=== PATIENT | male | born 1935 | race Two or more races ===

== ENCOUNTER → 2016-11-14 | Outpatient (CLI) | payer OTHER ==
--- NOTE | 2016-11-14 11:23 | RAD ---
PET CLINICAL INDICATION: Liver lesion FDG PET-CT of the Body TECHNIQUE: The patient received an IV injection of 11.77 mCi 18F-FDG in the left breast. After an initial uptake phase of approximately 60-90 minutes, a CT scan without oral contrast, without IV contrast was acquired. Subsequently, positron emission tomography images from the skull base to mid thigh were obtained. CT, PET and fused images were reconstructed in transaxial, coronal, and sagittal projections and interpreted from a workstation. The patient's plasma glucose was 168 mg/dl. PRIOR STUDIES: No prior studies CORRELATIVE STUDIES: There are no appropriate correlative studies FINDINGS: In the head and neck, no abnormal FDG uptake seen in the head and neck. In the chest, no abnormal FDG uptake in the chest. Coronary artery calcifications. Calcified subcarinal lymph nodes. Breathing motion artifact noted in the lungs limiting optimal evaluation. Scarring with bronchiectasis seen in the right upper lobe. Subpleural fibrosis and emphysematous changes seen in the lung bases. In the abdomen and pelvis, diffuse uptake of the FDG is seen in the liver. There is a 3.5 x 3.4 cm low attenuating lesion in segment 7 of the liver which does not demonstrate significant FDG uptake. SUV max equals 2.9. Normal physiologic uptake and excretion of the FDG seen in the kidneys and bladder. Diffuse moderate atherosclerotic disease of the abdominal aorta and bilateral iliac vessels. There is significant wall thickening of the ascending colon with SUV max of 10.7. The soft tissue center in the ascending colon approximately measures 5.2 x 3.5 cm. Enlarged, hepatic artery and fluid noted measuring 1.3 x 1.4 cm With SUV max of 2.3. In the visualized lower extremities, no abnormal FDG uptake in the extremities. No worrisome osseous lesions are seen. IMPRESSION: PET-CT from the skull base to midthigh demonstrates: 1. Significant wall thickening of the ascending colon with apple core type lesion with markedly increased metabolic activity concerning for colon malignancy. Colonoscopy recommended. CT abdomen and pelvis with IV contrast recommended for further evaluation. 2. Hypoechoic lesion in segment 7 of the liver demonstrating no significant metabolic activity. However, hepatic metastasis is not ruled out. 3. Enlarged common hepatic artery lymph nodes, nonspecific. May be reactive or metastatic.
== END | disposition home or self-care (01) ==
LOC: PETSC 07:33
PROVIDERS: ATTEND Internal Medicine Hematology & Oncology
DX: C78.7 Secondary malignant neoplasm of liver and intrahepatic bile duct (principal); K76.9 Liver disease, unspecified
CPT/HCPCS: 78815; A9552

== ENCOUNTER 2017-02-07 18:38 | Inpatient (IN) | payer MEDICARE ==
[2017-02-07] MEDS ORDERED: PROCHLORPERAZINE 25 MG SUPP.RECT. PR (19:30)
[2017-02-07] MEDS ORDERED: PROCHLORPERAZINE 10 MG/2 ML VIAL. IV (19:30)
[2017-02-07] MEDS ORDERED: BISACODYL 10 MG SUPP.RECT. PR (19:30)
[2017-02-07] MEDS ORDERED: MAGNESIUM HYDROXIDE 2,400 MG/30 ML ORAL.SUSP. PO (19:30)
[2017-02-07] MEDS ORDERED: PIP/TAZO PER PHARMACY MC (19:30)
[2017-02-07] MEDS ORDERED: ONDANSETRON PF 4 MG/2 ML VIAL. IV (19:30)
[2017-02-07] MEDS ORDERED: MAG HYDROX/ALUMINUM HYD/SIMETH 30 ML ORAL.SUSP PO (19:30)
[2017-02-07] MEDS ORDERED: CALCIUM CARBONATE 500 MG TAB.CHEW PO (19:30)
[2017-02-07] MEDS: VANCOMYCIN PER PHARMACY MC (19:35)
[2017-02-07] MEDS ORDERED: guaiFENesin DM 200MG/20MG 10 ML SYRUP PO (19:45)
[2017-02-07] MEDS: IPRATRPIUM/ALBUTEROL 0.5/2.5MG 3 ML NEBU. NEB (20:00)
[2017-02-07] MEDS: IV NORMAL SALINE 1000ML BAG 1,000 ML IV (20:08)
[2017-02-07] MEDS: VANCOMYCIN 1 GM in IV 1/2 NORMAL SALINE 250 ML IV (20:15)
[2017-02-07] MEDS ORDERED: ENOXAPARIN 40 MG/0.4 ML SYRINGE. SQ (20:15)
[2017-02-07] MEDS: PIPERACILLIN/TAZO IV Push 3.375 GM VIAL. IVP (20:18)
[2017-02-07] MEDS: INSULIN ASPART 300 UNITS/3 ML INSULN.PEN SQ (20:29)
[2017-02-07] MEDS: oxyCODONE IR 5 MG TABLET PO (20:36)
[2017-02-07] MEDS: ENOXAPARIN 40 MG/0.4 ML SYRINGE. SQ (20:40)
[2017-02-07] MEDS: DOCUSATE SODIUM 100 MG CAPSULE. PO (20:40)
[2017-02-07] MEDS: cloNIDine HCL 0.1 MG TABLET PO (20:41)
[2017-02-07] MEDS: POTASSIUM PHOSPHATE,MONOBASIC 500 MG TABLET. PO (20:41)
[2017-02-07] MEDS: IOHEXOL 240 MG/ML 50ML VIAL. PO (22:58)
[2017-02-07] MEDS ORDERED: CONTRAST GIVEN MC (23:00)
[2017-02-07 23:18] LABS: POC GLUCOSE 215 mg/dL (70-99)
[2017-02-08] MEDS: PIPERACILLIN/TAZO IV Push 3.375 GM VIAL. IVP ×5 (01:17→23:54)
[2017-02-08 05:43] LABS: BASO % 0 % (0-3); EOS # 0.1 x10^3/uL (0.0-0.7); EOS % 1 % (0-3); HEMATOCRIT 30.5 % (39.0-53.0); HEMOGLOBIN 10.1 g/dL (13.0-17.5); LYMPH # 0.5 x10^3/uL (1.0-4.8); LYMPH % 8 % (24-48); MEAN CORPUSCULAR HEMOGLOBIN 29 pg (25-35); MEAN CORPUSCULAR HGB CONC 33 g/dL (31-37); MEAN CORPUSCULAR VOLUME 89 fL (79-100); MONO # 0.3 x10^3/uL (0.0-1.1); MONO % 4 % (0-9); NEUT # 5.5 x10^3uL (1.8-7.7); NEUT % 87 % (31-73); PLATELET COUNT 261 x10^3/uL (140-400); RED BLOOD COUNT 3.44 x10^6/uL (4.30-5.70); RED CELL DISTRIBUTION WIDTH 14.6 % (11.5-14.5); WHITE BLOOD COUNT 6.4 x10^3/uL (4.0-11.0)
[2017-02-08 05:48] LABS: INR 1.2 (0.8-1.1); PROTHROMBIN TIME PATIENT 14.9 SEC (11.7-14.0)
[2017-02-08 06:08] LABS: ADD MAN DIFF? YES
[2017-02-08 06:27] LABS: LACTIC ACID 1.6 mmol/L (0.4-2.0)
[2017-02-08] MEDS: glipiZIDE 5 MG TABLET PO (07:30)
[2017-02-08] MEDS: INSULIN ASPART 300 UNITS/3 ML INSULN.PEN SQ ×3 (08:00→16:46)
[2017-02-08] MEDS: IV NORMAL SALINE 1000ML BAG 1,000 ML IV (08:03)
[2017-02-08] MEDS: IPRATRPIUM/ALBUTEROL 0.5/2.5MG 3 ML NEBU. NEB ×4 (08:15→21:01)
[2017-02-08] MEDS: POTASSIUM CHLORIDE 10MEQ 100 ML IV ×2 (08:55→10:06)
[2017-02-08] MEDS: AMINO AC 3%/ELECTROLYTE/GLYCER 1,000 ML IV ×2 (08:55→23:19)
[2017-02-08] MEDS: cloNIDine HCL 0.1 MG TABLET PO (08:58)
[2017-02-08] MEDS: amLODIPine BESYLATE 5 MG TABLET PO (08:59)
[2017-02-08] MEDS: DOCUSATE SODIUM 100 MG CAPSULE. PO (08:59)
[2017-02-08] MEDS: METOPROLOL SUCC 24HR ER 50 MG TAB.ER.24H. PO (08:59)
[2017-02-08] MEDS: POTASSIUM PHOSPHATE,MONOBASIC 500 MG TABLET. PO (08:59)
[2017-02-08] MEDS: CHOLECALCIFEROL (VITAMIN D3) 1,000 UNIT TABLET PO (08:59)
[2017-02-08 10:03] LABS: % BANDS 17 % (0-9); % EOS 2 % (0-5); % LYMPHS 13 % (24-48); % MONOS 4 % (0-10); % SEGS 64 % (35-66)
[2017-02-08 10:04] LABS: PLT ESTIMATE ADEQUATE (ADEQUATE)
[2017-02-08 11:04] LABS: CREATININE 1.6 mg/dL (0.7-1.3)
[2017-02-08 11:04] LABS: GFR 41.6
[2017-02-08] MEDS: FAMOTIDINE 20 MG/2 ML VIAL IVP (11:19)
[2017-02-08] MEDS: METOPROLOL TARTRATE 5 MG/5 ML VIAL. IVP ×2 (11:19→18:53)
[2017-02-08] MEDS ORDERED: MIDAZOLAM HCL/PF 5 MG/5 ML VIAL. (13:39)
[2017-02-08] MEDS ORDERED: fentaNYL PF VIAL 250 MCG/5 ML VIAL (13:39)
[2017-02-08] MEDS ORDERED: LIDOCAINE WITH 8.4% SOD BICARB 3 ML DISP.SYRIN. IJ (13:56)
[2017-02-08] MEDS ORDERED: LIDOCAINE 2%/EPI 1:100,000 20 ML VIAL. (14:09)
[2017-02-08] MEDS: LIDOCAINE 2%/EPI 1:100,000 20 ML VIAL. IJ (14:43)
[2017-02-08] MEDS: LIDOCAINE WITH 8.4% SOD BICARB 3 ML DISP.SYRIN. IJ (14:50)
[2017-02-08] MEDS: VANCOMYCIN PER PHARMACY MC ×2 (14:51→21:25)
[2017-02-08] MEDS: fentaNYL PF VIAL 250 MCG/5 ML VIAL IV (14:53)
[2017-02-08] MEDS: MIDAZOLAM HCL/PF 5 MG/5 ML VIAL. IV (14:53)
[2017-02-08 16:14] LABS: BASE EXCESS ABG -8 mmol/L (-3-3); HCO3 ABG 15 mmol/L (21-28); PCO2 ABG 23 mmHg (35-46); PH ABG 7.43 (7.35-7.45); PO2 ABG 60 mmHg (65-108); SAT O2 ABG 91 % (92-99)
[2017-02-08 16:17] LABS: FIO2 ABG 21
[2017-02-08] MEDS: hydrALAZINE 20 MG/ML VIAL. IVP (16:19)
[2017-02-08 16:22] LABS: POC GLUCOSE 154 mg/dL (70-99)
[2017-02-08] MEDS: SODIUM BICARBONATE VIAL 150 MEQ in IV DEXTROSE 5% 1,000 ML IV ×2 (16:55→23:42)
[2017-02-08] MEDS: CLINDAMYCIN 600MG PREMIX 50 ML IV ×2 (17:13→22:56)
[2017-02-08] MEDS: MICAFUNGIN 100 MG in IV NORMAL SALINE 100ML 100 ML IV (17:29)
[2017-02-08] MEDS ORDERED: DEXAMETHASONE SOD PHOS 20 MG/5 ML VIAL. (18:24)
[2017-02-08] MEDS ORDERED: PROPOFOL 20 ML IV (18:24)
[2017-02-08] MEDS ORDERED: SUCCINYLCHOLINE 200 MG/10 ML VIAL. (18:24)
[2017-02-08] MEDS ORDERED: LIDOCAINE 2% PF Vial for OR 5 ML VIAL. (18:24)
[2017-02-08] MEDS ORDERED: ROCURONIUM 50 MG/5 ML VIAL. (18:25)
[2017-02-08] MEDS ORDERED: fentaNYL PF VIAL 100 MCG/2 ML VIAL (18:25)
[2017-02-08] MEDS ORDERED: ALBUMIN HUMAN 5% 500 ML IV (20:15)
[2017-02-08] MEDS: NOREPINEPHRIN PREMIX 250 ML IV (21:00)
[2017-02-08] MEDS: ENOXAPARIN 40 MG/0.4 ML SYRINGE. SQ (21:00)
[2017-02-08 21:07] LABS: MEAN CORPUSCULAR HGB CONC 33 g/dL (31-37)
[2017-02-08 21:09] LABS: HEMOGLOBIN 6.6 g/dL (13.0-17.5)
[2017-02-08 21:10] LABS: HEMATOCRIT 19.9 % (39.0-53.0)
[2017-02-08] MEDS: SURGICEL HEMOSTAT 4X8 EACH. ×2 (21:11)
[2017-02-08 21:30] LABS: IMMEDIATE SPIN CROSSMATCH 1 4
[2017-02-08] MEDS ORDERED: SEVOFLURANE > 120 MINUTES. IH (22:19)
[2017-02-08] MEDS ORDERED: PHENYLEPHRINE in 0.9% NACL PF 1 MG/10 ML SYRINGE. IV (22:19)
[2017-02-08] MEDS ORDERED: SEVOFLURANE 61 TO 120 MINUTES. IH (22:19)
[2017-02-08] MEDS ORDERED: PROPOFOL 100 ML IV (22:22)
[2017-02-08] MEDS: PROPOFOL 100 ML IV (22:23)
[2017-02-08] MEDS ORDERED: ATROPINE 0.5 MG/5 ML DISP.SYRIN. IV (22:30)
[2017-02-08] MEDS ORDERED: MORPHINE SULFATE 2 MG/ML DISP.SYRIN. IV ×2 (22:30)
[2017-02-08] MEDS ORDERED: LABETALOL 20 MG/4 ML DISP.SYRIN. IV (22:30)
[2017-02-08] MEDS ORDERED: MIDAZOLAM HCL/PF 2 MG/2 ML VIAL. IV (22:30)
[2017-02-08] MEDS ORDERED: HYDROmorphone 2 MG/ML VIAL IV ×2 (22:30)
[2017-02-08] MEDS ORDERED: fentaNYL PF VIAL 100 MCG/2 ML VIAL IV ×2 (22:30)
[2017-02-08] MEDS ORDERED: ONDANSETRON PF 4 MG/2 ML VIAL. (22:44)
[2017-02-08] MEDS: VANCOMYCIN 1 GM in IV 1/2 NORMAL SALINE 250 ML IV (22:56)
[2017-02-08 23:08] LABS: MRSA BY PCR Negative (Negative)
[2017-02-08 23:42] LABS: BASE EXCESS ABG -7 mmol/L (-3-3); HCO3 ABG 18 mmol/L (21-28); PCO2 ABG 32 mmHg (35-46); PH ABG 7.37 (7.35-7.45); PO2 ABG 101 mmHg (65-108); SAT O2 ABG 97 % (92-99)
[2017-02-09 00:05] LABS: FIO2 ABG 40
[2017-02-09] MEDS: METOPROLOL TARTRATE 5 MG/5 ML VIAL. IVP ×4 (00:06→17:22)
[2017-02-09] MEDS ORDERED: VANCOMYCIN 1 GM in IV 1/2 NORMAL SALINE 250 ML IV (03:30)
[2017-02-09 04:13] LABS: ADD MAN DIFF? NO
[2017-02-09 04:15] LABS: BASO % 0 % (0-3); EOS % 0 % (0-3); HEMATOCRIT 25.5 % (39.0-53.0); HEMOGLOBIN 8.6 g/dL (13.0-17.5); LYMPH # 0.3 x10^3/uL (1.0-4.8); LYMPH % 6 % (24-48); MEAN CORPUSCULAR HEMOGLOBIN 30 pg (25-35); MEAN CORPUSCULAR HGB CONC 34 g/dL (31-37); MEAN CORPUSCULAR VOLUME 88 fL (79-100); MONO # 0.2 x10^3/uL (0.0-1.1); MONO % 4 % (0-9); NEUT # 5.2 x10^3uL (1.8-7.7); NEUT % 90 % (31-73); PLATELET COUNT 147 x10^3/uL (140-400); RED BLOOD COUNT 2.91 x10^6/uL (4.30-5.70); RED CELL DISTRIBUTION WIDTH 13.7 % (11.5-14.5); WHITE BLOOD COUNT 5.8 x10^3/uL (4.0-11.0)
[2017-02-09] MEDS: PROPOFOL 100 ML IV ×3 (05:01→22:06)
[2017-02-09] MEDS: PIPERACILLIN/TAZO IV Push 3.375 GM VIAL. IVP ×3 (05:56→17:33)
[2017-02-09] MEDS: CLINDAMYCIN 600MG PREMIX 50 ML IV ×3 (05:56→22:06)
[2017-02-09 06:37] LABS: PHOSPHORUS 4.2 mg/dL (2.6-4.7)
[2017-02-09 06:43] LABS: ALBUMIN/GLOBULIN RATIO 0.3 (1.0-1.7); ALK PHOS 97 U/L (46-116); ALT (SGPT) 20 U/L (16-63); ANION GAP 11 (6-14); AST (SGOT) 23 U/L (15-37); BLOOD UREA NITROGEN 43 mg/dL (8-26); BUN/CREATININE RATIO 27 (6-20); CALCIUM 7.4 mg/dL (8.5-10.1); CARBON DIOXIDE 21 mmol/L (21-32); CHLORIDE 108 mmol/L (98-107); CREATININE 1.6 mg/dL (0.7-1.3); GFR 41.6; GLUCOSE 353 mg/dL (70-99); SODIUM 140 mmol/L (136-145); TOTAL BILIRUBIN 1.4 mg/dL (0.2-1.0)
[2017-02-09] MEDS: IPRATRPIUM/ALBUTEROL 0.5/2.5MG 3 ML NEBU. NEB ×4 (08:57→20:00)
[2017-02-09 09:01] LABS: BASE EXCESS ABG -4 mmol/L (-3-3); HCO3 ABG 19 mmol/L (21-28); PCO2 ABG 29 mmHg (35-46); PH ABG 7.45 (7.35-7.45); PO2 ABG 117 mmHg (65-108); SAT O2 ABG 98 % (92-99)
[2017-02-09 09:03] LABS: FIO2 ABG 40
[2017-02-09] MEDS: FAMOTIDINE 20 MG/2 ML VIAL IVP (09:35)
[2017-02-09] MEDS: INSULIN ASPART 300 UNITS/3 ML INSULN.PEN SQ ×3 (09:37→17:35)
[2017-02-09 09:40] LABS: POC GLUCOSE 378 mg/dL (70-99)
[2017-02-09] MEDS: AMINO AC 3%/ELECTROLYTE/GLYCER 1,000 ML IV (12:36)
[2017-02-09] MEDS: VANCOMYCIN PER PHARMACY MC ×3 (12:57→23:50)
[2017-02-09 13:11] LABS: POC GLUCOSE 351 mg/dL (70-99)
[2017-02-09 13:37] LABS: HEMATOCRIT 26.1 % (39.0-53.0); HEMOGLOBIN 8.7 g/dL (13.0-17.5); MEAN CORPUSCULAR HEMOGLOBIN 30 pg (25-35); MEAN CORPUSCULAR HGB CONC 33 g/dL (31-37); MEAN CORPUSCULAR VOLUME 88 fL (79-100); PLATELET COUNT 167 x10^3/uL (140-400); RED BLOOD COUNT 2.96 x10^6/uL (4.30-5.70); RED CELL DISTRIBUTION WIDTH 14.7 % (11.5-14.5); WHITE BLOOD COUNT 8.4 x10^3/uL (4.0-11.0)
[2017-02-09] MEDS: SODIUM BICARBONATE VIAL 150 MEQ in IV DEXTROSE 5% 1,000 ML IV (14:56)
[2017-02-09] MEDS ORDERED: IPRATRPIUM/ALBUTEROL 0.5/2.5MG 3 ML NEBU. (15:28)
[2017-02-09] MEDS: fentaNYL PF VIAL 100 MCG/2 ML VIAL IV (16:37)
[2017-02-09 17:06] LABS: POC GLUCOSE 354 mg/dL (70-99)
[2017-02-09] MEDS: MICAFUNGIN 100 MG in IV NORMAL SALINE 100ML 100 ML IV (17:33)
[2017-02-09] MEDS: ENOXAPARIN 40 MG/0.4 ML SYRINGE. SQ (21:08)
[2017-02-09] MEDS: INSULIN DETEMIR 300 UNITS/3 ML INSULN.PEN. SQ (21:09)
[2017-02-09 21:19] LABS: POC GLUCOSE 154 mg/dL (70-99)
[2017-02-09 22:36] LABS: VANC TR 15.1 mcg/mL (10.0-20.0)
[2017-02-09] MEDS: VANCOMYCIN 1 GM in IV 1/2 NORMAL SALINE 250 ML IV (23:31)
[2017-02-10] MEDS: PIPERACILLIN/TAZO IV Push 3.375 GM VIAL. IVP ×5 (00:16→23:42)
[2017-02-10] MEDS: METOPROLOL TARTRATE 5 MG/5 ML VIAL. IVP ×6 (00:17→23:42)
[2017-02-10] MEDS: fentaNYL PF VIAL 100 MCG/2 ML VIAL IV ×5 (00:25→21:36)
[2017-02-10] MEDS: AMINO AC 3%/ELECTROLYTE/GLYCER 1,000 ML IV ×3 (02:14→23:05)
[2017-02-10] MEDS: SODIUM BICARBONATE VIAL 150 MEQ in IV DEXTROSE 5% 1,000 ML IV ×2 (04:26→19:07)
[2017-02-10 05:25] LABS: ADD MAN DIFF? NO
[2017-02-10 05:36] LABS: BASO % 0 % (0-3); EOS % 0 % (0-3); HEMATOCRIT 25.5 % (39.0-53.0); HEMOGLOBIN 8.6 g/dL (13.0-17.5); LYMPH # 0.8 x10^3/uL (1.0-4.8); LYMPH % 8 % (24-48); MEAN CORPUSCULAR HEMOGLOBIN 29 pg (25-35); MEAN CORPUSCULAR HGB CONC 34 g/dL (31-37); MEAN CORPUSCULAR VOLUME 87 fL (79-100); MONO # 0.3 x10^3/uL (0.0-1.1); MONO % 3 % (0-9); NEUT # 9.1 x10^3uL (1.8-7.7); NEUT % 89 % (31-73); PLATELET COUNT 170 x10^3/uL (140-400); RED BLOOD COUNT 2.92 x10^6/uL (4.30-5.70); RED CELL DISTRIBUTION WIDTH 14.7 % (11.5-14.5); WHITE BLOOD COUNT 10.3 x10^3/uL (4.0-11.0)
[2017-02-10] MEDS: CLINDAMYCIN 600MG PREMIX 50 ML IV ×3 (06:02→21:42)
[2017-02-10] MEDS: INSULIN ASPART 300 UNITS/3 ML INSULN.PEN SQ ×5 (06:08→23:22)
[2017-02-10 06:12] LABS: POC GLUCOSE 217 mg/dL (70-99)
[2017-02-10 06:14] LABS: ALBUMIN 0.8 g/dL (3.4-5.0); ALBUMIN/GLOBULIN RATIO 0.2 (1.0-1.7); ALK PHOS 116 U/L (46-116); ALT (SGPT) 33 U/L (16-63); ANION GAP 10 (6-14); AST (SGOT) 62 U/L (15-37); BLOOD UREA NITROGEN 51 mg/dL (8-26); BUN/CREATININE RATIO 27 (6-20); CALCIUM 7.7 mg/dL (8.5-10.1); CARBON DIOXIDE 25 mmol/L (21-32); CHLORIDE 104 mmol/L (98-107); CREATININE 1.9 mg/dL (0.7-1.3); GFR 34.1; GLUCOSE 334 mg/dL (70-99); POTASSIUM 3.3 mmol/L (3.5-5.1); SODIUM 139 mmol/L (136-145); TOTAL BILIRUBIN 0.6 mg/dL (0.2-1.0); TOTAL PROTEIN 4.4 g/dL (6.4-8.2)
[2017-02-10] MEDS: PROPOFOL 100 ML IV ×2 (06:41→23:06)
[2017-02-10] MEDS: IPRATRPIUM/ALBUTEROL 0.5/2.5MG 3 ML NEBU. NEB ×4 (08:21→20:11)
[2017-02-10 08:36] LABS: BASE EXCESS ABG -1 mmol/L (-3-3); HCO3 ABG 24 mmol/L (21-28); PCO2 ABG 38 mmHg (35-46); PO2 ABG 118 mmHg (65-108); SAT O2 ABG 97 % (92-99)
[2017-02-10 08:38] LABS: FIO2 ABG 40
[2017-02-10] MEDS: FAMOTIDINE 20 MG/2 ML VIAL IVP (09:00)
[2017-02-10] MEDS: hydrALAZINE 20 MG/ML VIAL. IVP (10:56)
[2017-02-10] MEDS: POTASSIUM CHLORIDE 20MEQ 50 ML IV (11:01)
[2017-02-10 14:23] LABS: POC GLUCOSE 305 mg/dL (70-99)
[2017-02-10 17:09] LABS: BASE EXCESS ABG -2 mmol/L (-3-3); HCO3 ABG 22 mmol/L (21-28); PCO2 ABG 32 mmHg (35-46); PH ABG 7.45 (7.35-7.45); PO2 ABG 147 mmHg (65-108); SAT O2 ABG 98 % (92-99)
[2017-02-10 17:11] LABS: FIO2 ABG 40
[2017-02-10] MEDS: MICAFUNGIN 100 MG in IV NORMAL SALINE 100ML 100 ML IV (18:25)
[2017-02-10 18:41] LABS: POC GLUCOSE 343 mg/dL (70-99)
[2017-02-10] MEDS: INSULIN DETEMIR 300 UNITS/3 ML INSULN.PEN. SQ (20:19)
[2017-02-10] MEDS: ENOXAPARIN 30 MG/0.3 ML SYRINGE. SQ (20:20)
[2017-02-10 20:36] LABS: POC GLUCOSE 265 mg/dL (70-99)
[2017-02-10 23:26] LABS: POC GLUCOSE 234 mg/dL (70-99)
[2017-02-11] MEDS: fentaNYL PF VIAL 100 MCG/2 ML VIAL IV (02:11)
[2017-02-11] MEDS: CLINDAMYCIN 600MG PREMIX 50 ML IV (05:48)
[2017-02-11] MEDS: PIPERACILLIN/TAZO IV Push 3.375 GM VIAL. IVP ×3 (05:49→17:36)
[2017-02-11] MEDS: INSULIN ASPART 300 UNITS/3 ML INSULN.PEN SQ ×3 (05:50→17:39)
[2017-02-11 05:53] LABS: ADD MAN DIFF? NO
[2017-02-11 05:56] LABS: BASO % 0 % (0-3); EOS # 0.1 x10^3/uL (0.0-0.7); EOS % 1 % (0-3); HEMATOCRIT 23.4 % (39.0-53.0); HEMOGLOBIN 7.7 g/dL (13.0-17.5); LYMPH # 1.1 x10^3/uL (1.0-4.8); LYMPH % 10 % (24-48); MEAN CORPUSCULAR HEMOGLOBIN 29 pg (25-35); MEAN CORPUSCULAR HGB CONC 33 g/dL (31-37); MEAN CORPUSCULAR VOLUME 88 fL (79-100); MONO # 0.4 x10^3/uL (0.0-1.1); MONO % 3 % (0-9); NEUT # 9.5 x10^3uL (1.8-7.7); NEUT % 86 % (31-73); PLATELET COUNT 143 x10^3/uL (140-400); RED BLOOD COUNT 2.67 x10^6/uL (4.30-5.70); RED CELL DISTRIBUTION WIDTH 14.6 % (11.5-14.5); WHITE BLOOD COUNT 11.1 x10^3/uL (4.0-11.0)
[2017-02-11] MEDS: METOPROLOL TARTRATE 5 MG/5 ML VIAL. IVP ×3 (05:58→17:36)
[2017-02-11 06:02] LABS: POC GLUCOSE 240 mg/dL (70-99)
[2017-02-11 06:08] LABS: MAGNESIUM 2.3 mg/dL (1.8-2.4)
[2017-02-11 06:14] LABS: ALBUMIN 0.7 g/dL (3.4-5.0); ALBUMIN/GLOBULIN RATIO 0.2 (1.0-1.7); ALK PHOS 126 U/L (46-116); ALT (SGPT) 31 U/L (16-63); ANION GAP 7 (6-14); AST (SGOT) 41 U/L (15-37); BLOOD UREA NITROGEN 51 mg/dL (8-26); BUN/CREATININE RATIO 28 (6-20); CARBON DIOXIDE 30 mmol/L (21-32); CHLORIDE 101 mmol/L (98-107); CREATININE 1.8 mg/dL (0.7-1.3); GFR 36.3; GLUCOSE 225 mg/dL (70-99); POTASSIUM 3.2 mmol/L (3.5-5.1); SODIUM 138 mmol/L (136-145); TOTAL BILIRUBIN 0.5 mg/dL (0.2-1.0); TOTAL PROTEIN 4.5 g/dL (6.4-8.2)
[2017-02-11 07:49] LABS: POC GLUCOSE 121 mg/dL (70-99)
[2017-02-11 07:50] LABS: POC GLUCOSE 95 mg/dL (70-99)
[2017-02-11] MEDS: IPRATRPIUM/ALBUTEROL 0.5/2.5MG 3 ML NEBU. NEB ×4 (08:20→20:23)
[2017-02-11 08:36] LABS: BASE EXCESS ABG 5 mmol/L (-3-3); HCO3 ABG 29 mmol/L (21-28); PCO2 ABG 44 mmHg (35-46); PH ABG 7.45 (7.35-7.45); PO2 ABG 163 mmHg (65-108); SAT O2 ABG 98 % (92-99)
[2017-02-11] MEDS: IV NORMAL SALINE 1000ML BAG 1,000 ML IV (08:36)
[2017-02-11 08:38] LABS: FIO2 ABG 40
[2017-02-11] MEDS: POTASSIUM CHLORIDE 20MEQ 50 ML IV ×2 (08:39→12:03)
[2017-02-11] MEDS: FAMOTIDINE 20 MG/2 ML VIAL IVP (09:00)
[2017-02-11 12:12] LABS: BASE EXCESS ABG 3 mmol/L (-3-3); HCO3 ABG 27 mmol/L (21-28); PCO2 ABG 43 mmHg (35-46); PH ABG 7.43 (7.35-7.45); PO2 ABG 140 mmHg (65-108); SAT O2 ABG 98 % (92-99)
[2017-02-11 12:14] LABS: FIO2 ABG 40
[2017-02-11 13:16] LABS: TRIGLYCERIDES 225 mg/dL (0-150)
[2017-02-11] MEDS: TPN PER PHARMACY MC ×2 (13:24→13:30)
[2017-02-11 15:23] LABS: POC GLUCOSE 170 mg/dL (70-99)
[2017-02-11] MEDS: MICAFUNGIN 100 MG in IV NORMAL SALINE 100ML 100 ML IV (17:36)
[2017-02-11 17:45] LABS: POC GLUCOSE 138 mg/dL (70-99)
[2017-02-11] MEDS: ENOXAPARIN 30 MG/0.3 ML SYRINGE. SQ (21:38)
[2017-02-11] MEDS: INSULIN DETEMIR 300 UNITS/3 ML INSULN.PEN. SQ (21:41)
[2017-02-11] MEDS: TOTAL PARENTERAL NUTRITION IV (21:50)
[2017-02-11] MEDS: AMINO ACIDS IV (21:50)
[2017-02-11] MEDS: [UNRECOGNIZED DRUG - OTHER] IV (21:50)
[2017-02-11] MEDS: DEXTROSE 70% IV (21:50)
[2017-02-11] MEDS ORDERED: TOTAL PARENTERAL NUTRITION 0 ML, AMINO ACIDS 10 % 60 GM, DEXTROSE 70 % IN WATER 195 GM,... IV (22:00)
[2017-02-12] MEDS: PIPERACILLIN/TAZO IV Push 3.375 GM VIAL. IVP ×4 (00:23→18:04)
[2017-02-12] MEDS: METOPROLOL TARTRATE 5 MG/5 ML VIAL. IVP ×4 (00:24→18:00)
[2017-02-12 05:31] LABS: ADD MAN DIFF? NO
[2017-02-12 05:44] LABS: BASO % 0 % (0-3); EOS # 0.1 x10^3/uL (0.0-0.7); EOS % 1 % (0-3); HEMATOCRIT 27.3 % (39.0-53.0); LYMPH # 0.8 x10^3/uL (1.0-4.8); LYMPH % 7 % (24-48); MEAN CORPUSCULAR HEMOGLOBIN 29 pg (25-35); MEAN CORPUSCULAR HGB CONC 33 g/dL (31-37); MEAN CORPUSCULAR VOLUME 89 fL (79-100); MONO # 0.4 x10^3/uL (0.0-1.1); MONO % 3 % (0-9); NEUT # 11.1 x10^3uL (1.8-7.7); NEUT % 89 % (31-73); PLATELET COUNT 181 x10^3/uL (140-400); RED BLOOD COUNT 3.07 x10^6/uL (4.30-5.70); RED CELL DISTRIBUTION WIDTH 14.3 % (11.5-14.5); WHITE BLOOD COUNT 12.4 x10^3/uL (4.0-11.0)
[2017-02-12] MEDS: INSULIN ASPART 300 UNITS/3 ML INSULN.PEN SQ ×4 (06:15→18:06)
[2017-02-12 06:24] LABS: ALBUMIN 0.9 g/dL (3.4-5.0); ALBUMIN/GLOBULIN RATIO 0.2 (1.0-1.7); ALK PHOS 164 U/L (46-116); ALT (SGPT) 28 U/L (16-63); ANION GAP 6 (6-14); AST (SGOT) 34 U/L (15-37); BLOOD UREA NITROGEN 38 mg/dL (8-26); BUN/CREATININE RATIO 27 (6-20); CALCIUM 8.7 mg/dL (8.5-10.1); CARBON DIOXIDE 28 mmol/L (21-32); CHLORIDE 109 mmol/L (98-107); CREATININE 1.4 mg/dL (0.7-1.3); GFR 48.5; GLUCOSE 156 mg/dL (70-99); MAGNESIUM 1.9 mg/dL (1.8-2.4); PHOSPHORUS 2.5 mg/dL (2.6-4.7); POTASSIUM 3.7 mmol/L (3.5-5.1); SODIUM 143 mmol/L (136-145); TOTAL BILIRUBIN 0.6 mg/dL (0.2-1.0)
[2017-02-12 06:29] LABS: POC GLUCOSE 155 mg/dL (70-99)
[2017-02-12] MEDS: IV NORMAL SALINE 1000ML BAG 1,000 ML IV (07:35)
[2017-02-12] MEDS: IPRATRPIUM/ALBUTEROL 0.5/2.5MG 3 ML NEBU. NEB ×4 (07:46→20:01)
[2017-02-12] MEDS: FAMOTIDINE 20 MG/2 ML VIAL IVP (09:00)
[2017-02-12 12:19] LABS: POC GLUCOSE 186 mg/dL (70-99)
[2017-02-12] MEDS: POTASSIUM PHOSPHATE DIBASIC 13.6 MMOL in IV NORMAL SALINE 100ML 100 ML IV (14:18)
[2017-02-12] MEDS: TPN PER PHARMACY MC (15:10)
[2017-02-12 17:26] LABS: POC GLUCOSE 210 mg/dL (70-99)
[2017-02-12] MEDS: MICAFUNGIN 100 MG in IV NORMAL SALINE 100ML 100 ML IV (18:04)
[2017-02-12] MEDS: ENOXAPARIN 30 MG/0.3 ML SYRINGE. SQ (21:11)
[2017-02-12] MEDS: INSULIN DETEMIR 300 UNITS/3 ML INSULN.PEN. SQ (21:13)
[2017-02-12] MEDS: AMINO ACIDS IV (22:50)
[2017-02-12] MEDS: TOTAL PARENTERAL NUTRITION IV (22:50)
[2017-02-12] MEDS: DEXTROSE 70% IV (22:50)
[2017-02-12] MEDS: [UNRECOGNIZED DRUG - OTHER] IV (22:50)
[2017-02-13] MEDS: PIPERACILLIN/TAZO IV Push 3.375 GM VIAL. IVP ×5 (00:11→23:34)
[2017-02-13] MEDS: METOPROLOL TARTRATE 5 MG/5 ML VIAL. IVP ×5 (00:14→23:34)
[2017-02-13 00:26] LABS: POC GLUCOSE 193 mg/dL (70-99)
[2017-02-13 05:38] LABS: ADD MAN DIFF? NO
[2017-02-13 05:44] LABS: BASO % 0 % (0-3); EOS # 0.1 x10^3/uL (0.0-0.7); EOS % 1 % (0-3); HEMATOCRIT 27.7 % (39.0-53.0); HEMOGLOBIN 9.1 g/dL (13.0-17.5); LYMPH # 0.6 x10^3/uL (1.0-4.8); LYMPH % 6 % (24-48); MEAN CORPUSCULAR HEMOGLOBIN 29 pg (25-35); MEAN CORPUSCULAR HGB CONC 33 g/dL (31-37); MEAN CORPUSCULAR VOLUME 90 fL (79-100); MONO # 0.3 x10^3/uL (0.0-1.1); MONO % 3 % (0-9); NEUT # 9.8 x10^3uL (1.8-7.7); NEUT % 91 % (31-73); PLATELET COUNT 185 x10^3/uL (140-400); RED BLOOD COUNT 3.07 x10^6/uL (4.30-5.70); RED CELL DISTRIBUTION WIDTH 14.7 % (11.5-14.5); WHITE BLOOD COUNT 10.9 x10^3/uL (4.0-11.0)
[2017-02-13 06:08] LABS: ALBUMIN 0.9 g/dL (3.4-5.0); ALBUMIN/GLOBULIN RATIO 0.2 (1.0-1.7); ALK PHOS 178 U/L (46-116); ALT (SGPT) 22 U/L (16-63); ANION GAP 8 (6-14); AST (SGOT) 25 U/L (15-37); BLOOD UREA NITROGEN 30 mg/dL (8-26); BUN/CREATININE RATIO 25 (6-20); CALCIUM 8.9 mg/dL (8.5-10.1); CARBON DIOXIDE 24 mmol/L (21-32); CHLORIDE 112 mmol/L (98-107); CREATININE 1.2 mg/dL (0.7-1.3); GLUCOSE 221 mg/dL (70-99); MAGNESIUM 1.8 mg/dL (1.8-2.4); PHOSPHORUS 2.8 mg/dL (2.6-4.7); POTASSIUM 4.3 mmol/L (3.5-5.1); SODIUM 144 mmol/L (136-145); TOTAL BILIRUBIN 0.5 mg/dL (0.2-1.0); TOTAL PROTEIN 5.4 g/dL (6.4-8.2)
[2017-02-13] MEDS: INSULIN ASPART 300 UNITS/3 ML INSULN.PEN SQ ×5 (06:28→23:43)
[2017-02-13 06:30] LABS: POC GLUCOSE 217 mg/dL (70-99)
[2017-02-13] MEDS: IPRATRPIUM/ALBUTEROL 0.5/2.5MG 3 ML NEBU. NEB ×4 (08:05→20:35)
[2017-02-13] MEDS: hydrALAZINE 20 MG/ML VIAL. IVP ×2 (08:06→20:36)
[2017-02-13] MEDS: FAMOTIDINE 20 MG/2 ML VIAL IVP (08:06)
[2017-02-13] MEDS: ALBUMIN HUMAN 25% 100 ML IV ×2 (11:21→20:35)
[2017-02-13] MEDS: TPN PER PHARMACY MC (12:39)
[2017-02-13] MEDS: MICAFUNGIN 100 MG in IV NORMAL SALINE 100ML 100 ML IV (17:20)
[2017-02-13 17:29] LABS: POC GLUCOSE 211 mg/dL (70-99)
[2017-02-13] MEDS: ENOXAPARIN 40 MG/0.4 ML SYRINGE. SQ (20:37)
[2017-02-13] MEDS: INSULIN DETEMIR 300 UNITS/3 ML INSULN.PEN. SQ (20:58)
[2017-02-13 21:06] LABS: POC GLUCOSE 192 mg/dL (70-99)
[2017-02-13] MEDS: AMINO ACIDS IV (21:50)
[2017-02-13] MEDS: [UNRECOGNIZED DRUG - OTHER] IV (21:50)
[2017-02-13] MEDS: TOTAL PARENTERAL NUTRITION IV (21:50)
[2017-02-13] MEDS: DEXTROSE 70% IV (21:50)
[2017-02-13 23:53] LABS: POC GLUCOSE 195 mg/dL (70-99)
[2017-02-14] MEDS: METOPROLOL TARTRATE 5 MG/5 ML VIAL. IVP ×3 (05:42→21:29)
[2017-02-14] MEDS: PIPERACILLIN/TAZO IV Push 3.375 GM VIAL. IVP ×3 (05:43→18:00)
[2017-02-14] MEDS: INSULIN ASPART 300 UNITS/3 ML INSULN.PEN SQ ×3 (05:43→18:00)
[2017-02-14 05:50] LABS: POC GLUCOSE 144 mg/dL (70-99)
[2017-02-14 05:50] LABS: POC GLUCOSE 105 mg/dL (70-99)
[2017-02-14 05:57] LABS: POC GLUCOSE 240 mg/dL (70-99)
[2017-02-14 06:08] LABS: ADD MAN DIFF? NO
[2017-02-14 06:40] LABS: BASO % 0 % (0-3); EOS % 0 % (0-3); HEMATOCRIT 26.4 % (39.0-53.0); HEMOGLOBIN 8.6 g/dL (13.0-17.5); LYMPH # 0.5 x10^3/uL (1.0-4.8); LYMPH % 4 % (24-48); MEAN CORPUSCULAR HEMOGLOBIN 29 pg (25-35); MEAN CORPUSCULAR HGB CONC 32 g/dL (31-37); MEAN CORPUSCULAR VOLUME 90 fL (79-100); MONO # 0.3 x10^3/uL (0.0-1.1); MONO % 2 % (0-9); NEUT # 11.6 x10^3uL (1.8-7.7); NEUT % 93 % (31-73); PLATELET COUNT 169 x10^3/uL (140-400); RED BLOOD COUNT 2.92 x10^6/uL (4.30-5.70); RED CELL DISTRIBUTION WIDTH 14.6 % (11.5-14.5); WHITE BLOOD COUNT 12.4 x10^3/uL (4.0-11.0)
[2017-02-14 06:47] LABS: ALBUMIN 1.8 g/dL (3.4-5.0); ALBUMIN/GLOBULIN RATIO 0.5 (1.0-1.7); ALK PHOS 168 U/L (46-116); ALT (SGPT) 12 U/L (16-63); ANION GAP 10 (6-14); AST (SGOT) 22 U/L (15-37); BLOOD UREA NITROGEN 26 mg/dL (8-26); BUN/CREATININE RATIO 22 (6-20); CALCIUM 9.3 mg/dL (8.5-10.1); CARBON DIOXIDE 23 mmol/L (21-32); CHLORIDE 114 mmol/L (98-107); CREATININE 1.2 mg/dL (0.7-1.3); GLUCOSE 254 mg/dL (70-99); POTASSIUM 4.5 mmol/L (3.5-5.1); SODIUM 147 mmol/L (136-145); TOTAL BILIRUBIN 0.9 mg/dL (0.2-1.0); TOTAL PROTEIN 5.7 g/dL (6.4-8.2)
[2017-02-14] MEDS: IPRATRPIUM/ALBUTEROL 0.5/2.5MG 3 ML NEBU. NEB ×3 (07:27→15:13)
[2017-02-14] MEDS: FAMOTIDINE 20 MG/2 ML VIAL IVP (07:47)
[2017-02-14] MEDS: ALBUMIN HUMAN 25% 100 ML IV ×3 (07:47→22:34)
[2017-02-14 11:42] LABS: POC GLUCOSE 205 mg/dL (70-99)
[2017-02-14 11:42] LABS: POC GLUCOSE 176 mg/dL (70-99)
[2017-02-14 12:28] LABS: POC GLUCOSE 270 mg/dL (70-99)
[2017-02-14] MEDS: TPN PER PHARMACY MC (14:11)
[2017-02-14 21:24] LABS: POC GLUCOSE 176 mg/dL (70-99)
[2017-02-14] MEDS: MICAFUNGIN 100 MG in IV NORMAL SALINE 100ML 100 ML IV (21:27)
[2017-02-14] MEDS: ENOXAPARIN 40 MG/0.4 ML SYRINGE. SQ (21:31)
[2017-02-14] MEDS ORDERED: DEXTROSE 70% IV (22:00)
[2017-02-14] MEDS ORDERED: AMINO ACIDS IV (22:00)
[2017-02-14] MEDS ORDERED: [UNRECOGNIZED DRUG - OTHER] IV (22:00)
[2017-02-14] MEDS ORDERED: TOTAL PARENTERAL NUTRITION IV (22:00)
[2017-02-14] MEDS: INSULIN DETEMIR 300 UNITS/3 ML INSULN.PEN. SQ (22:48)
[2017-02-15] MEDS: PIPERACILLIN/TAZO IV Push 3.375 GM VIAL. IVP ×4 (00:55→16:59)
[2017-02-15] MEDS: METOPROLOL TARTRATE 5 MG/5 ML VIAL. IVP ×5 (00:57→21:01)
[2017-02-15 01:08] LABS: POC GLUCOSE 128 mg/dL (70-99)
[2017-02-15] MEDS: INSULIN ASPART 300 UNITS/3 ML INSULN.PEN SQ ×4 (06:00→17:05)
[2017-02-15] MEDS: DEXTROSE 50% 25 GM / 50ML DISP.SYRIN. IV ×2 (06:14→10:30)
[2017-02-15 06:15] LABS: ADD MAN DIFF? NO
[2017-02-15 06:26] LABS: POC GLUCOSE 50 mg/dL (70-99)
[2017-02-15 06:26] LABS: BASO # 0.1 x10^3/uL (0.0-0.2); BASO % 1 % (0-3); EOS # 0.1 x10^3/uL (0.0-0.7); EOS % 1 % (0-3); HEMATOCRIT 24.1 % (39.0-53.0); LYMPH # 0.7 x10^3/uL (1.0-4.8); LYMPH % 7 % (24-48); MEAN CORPUSCULAR HEMOGLOBIN 30 pg (25-35); MEAN CORPUSCULAR HGB CONC 33 g/dL (31-37); MEAN CORPUSCULAR VOLUME 89 fL (79-100); MONO # 0.4 x10^3/uL (0.0-1.1); MONO % 4 % (0-9); NEUT # 9.4 x10^3uL (1.8-7.7); NEUT % 88 % (31-73); PLATELET COUNT 152 x10^3/uL (140-400); RED CELL DISTRIBUTION WIDTH 14.8 % (11.5-14.5); WHITE BLOOD COUNT 10.6 x10^3/uL (4.0-11.0)
[2017-02-15 06:39] LABS: POC GLUCOSE 100 mg/dL (70-99)
[2017-02-15 07:03] LABS: MAGNESIUM 1.7 mg/dL (1.8-2.4)
[2017-02-15 07:03] LABS: ALBUMIN 2.5 g/dL (3.4-5.0); ALBUMIN/GLOBULIN RATIO 0.7 (1.0-1.7); ALK PHOS 198 U/L (46-116); ALT (SGPT) 18 U/L (16-63); ANION GAP 11 (6-14); AST (SGOT) 30 U/L (15-37); BLOOD UREA NITROGEN 23 mg/dL (8-26); BUN/CREATININE RATIO 19 (6-20); CALCIUM 9.7 mg/dL (8.5-10.1); CARBON DIOXIDE 22 mmol/L (21-32); CHLORIDE 118 mmol/L (98-107); CREATININE 1.2 mg/dL (0.7-1.3); GLUCOSE 50 mg/dL (70-99); POTASSIUM 3.7 mmol/L (3.5-5.1); SODIUM 151 mmol/L (136-145); TOTAL BILIRUBIN 1.3 mg/dL (0.2-1.0)
[2017-02-15 07:05] LABS: PHOSPHORUS 2.3 mg/dL (2.6-4.7)
[2017-02-15] MEDS: IPRATRPIUM/ALBUTEROL 0.5/2.5MG 3 ML NEBU. NEB ×2 (08:30→19:55)
[2017-02-15] MEDS: ALBUMIN HUMAN 25% 100 ML IV (08:30)
[2017-02-15] MEDS: FAMOTIDINE 20 MG/2 ML VIAL IVP (08:30)
[2017-02-15 10:27] LABS: POC GLUCOSE 50 mg/dL (70-99)
[2017-02-15 10:27] LABS: POC GLUCOSE 116 mg/dL (70-99)
[2017-02-15] MEDS: IV DEXTROSE 5 %-0.45 % NACL 1,000 ML IV (12:34)
[2017-02-15] MEDS: PROPOFOL 100 ML IV (12:35)
[2017-02-15 12:43] LABS: BASO # 0.1 x10^3/uL (0.0-0.2); BASO % 1 % (0-3); EOS # 0.1 x10^3/uL (0.0-0.7); EOS % 0 % (0-3); HEMOGLOBIN 7.3 g/dL (13.0-17.5); LYMPH # 3.8 x10^3/uL (1.0-4.8); LYMPH % 22 % (24-48); MEAN CORPUSCULAR HEMOGLOBIN 29 pg (25-35); MEAN CORPUSCULAR HGB CONC 30 g/dL (31-37); MEAN CORPUSCULAR VOLUME 96 fL (79-100); MONO # 0.5 x10^3/uL (0.0-1.1); MONO % 3 % (0-9); NEUT # 12.9 x10^3uL (1.8-7.7); NEUT % 74 % (31-73); PLATELET COUNT 202 x10^3/uL (140-400); RED BLOOD COUNT 2.51 x10^6/uL (4.30-5.70); RED CELL DISTRIBUTION WIDTH 15.5 % (11.5-14.5); WHITE BLOOD COUNT 17.5 x10^3/uL (4.0-11.0)
[2017-02-15 12:44] LABS: ADD MAN DIFF? YES
[2017-02-15] MEDS: MAGNESIUM SULFATE 2GM 50 ML IV (12:45)
[2017-02-15 12:47] LABS: INR 1.6 (0.8-1.1); PROTHROMBIN TIME PATIENT 17.7 SEC (11.7-14.0)
[2017-02-15 12:49] LABS: ANION GAP 20 (6-14); BLOOD UREA NITROGEN 24 mg/dL (8-26); BUN/CREATININE RATIO 15 (6-20); CALCIUM 9.5 mg/dL (8.5-10.1); CARBON DIOXIDE 18 mmol/L (21-32); CHLORIDE 117 mmol/L (98-107); CREATININE 1.6 mg/dL (0.7-1.3); GFR 41.6; GLUCOSE 183 mg/dL (70-99); POTASSIUM 4.2 mmol/L (3.5-5.1); SODIUM 155 mmol/L (136-145)
[2017-02-15 12:55] LABS: ALBUMIN 2.4 g/dL (3.4-5.0); ALBUMIN/GLOBULIN RATIO 0.8 (1.0-1.7); ALK PHOS 233 U/L (46-116); ALT (SGPT) 22 U/L (16-63); AST (SGOT) 54 U/L (15-37); MAGNESIUM 2.1 mg/dL (1.8-2.4); TOTAL PROTEIN 5.3 g/dL (6.4-8.2)
[2017-02-15 13:06] LABS: % BANDS 15 % (0-9); % EOS 1 % (0-5); % METAS 1 % (0-0); % MONOS 2 % (0-10); PLT ESTIMATE ADEQUATE (ADEQUATE)
[2017-02-15 13:07] LABS: ANISOCYTOSIS PRESENT; OVALOCYTES FEW; POLYCHROMASIA SLIGHT
[2017-02-15 13:08] LABS: % LYMPHS 19 % (24-48); % SEGS 62 % (35-66)
[2017-02-15 13:27] LABS: THYROID STIM HORMONE (TSH) 4.682 uIU/mL (0.358-3.74)
[2017-02-15 13:40] LABS: BASE EXCESS COOX -5 mmol/L (-3-3); CARBON MONOXIDE 0.2 % (0.0-1.9); HCO3 COOX 19 mmol/L (21-28); METHEMOGLOBIN 0.6 % (0.0-1.9); OXYHEMOGLOBIN 98.3 %; PCO2 COOX 33 mmHg (35-46); PH COOX 7.39 (7.35-7.45); PO2 COOX 323 mmHg (65-108); SAT O2 COOX 99 % (92-99); TOTAL HEMOGLOBIN 8.7 g/dL
[2017-02-15 13:41] LABS: FIO2 COOX 100
[2017-02-15] MEDS: NOREPINEPHRIN PREMIX 250 ML IV (13:58)
[2017-02-15] MEDS: MICAFUNGIN 100 MG in IV NORMAL SALINE 100ML 100 ML IV (17:08)
[2017-02-15 17:16] LABS: POC GLUCOSE 109 mg/dL (70-99)
[2017-02-15] MEDS: ENOXAPARIN 40 MG/0.4 ML SYRINGE. SQ (21:04)
[2017-02-15] MEDS: ACETAMINOPHEN 325 MG TABLET. PO (21:04)
[2017-02-15 23:26] LABS: TROPONINI 6.939 ng/mL (0.000-0.055)
[2017-02-16] MEDS: PIPERACILLIN/TAZO IV Push 3.375 GM VIAL. IVP ×4 (01:39→17:25)
[2017-02-16] MEDS: IV DEXTROSE 5 %-0.45 % NACL 1,000 ML IV ×2 (01:39→08:15)
[2017-02-16] MEDS: INSULIN DETEMIR 300 UNITS/3 ML INSULN.PEN. SQ ×2 (01:43→22:26)
[2017-02-16 01:57] LABS: POC GLUCOSE 149 mg/dL (70-99)
[2017-02-16] MEDS: METOPROLOL TARTRATE 5 MG/5 ML VIAL. IVP ×3 (05:13→17:26)
[2017-02-16 05:40] LABS: ADD MAN DIFF? NO
[2017-02-16 05:53] LABS: BASO % 1 % (0-3); EOS % 0 % (0-3); HEMATOCRIT 21.5 % (39.0-53.0); HEMOGLOBIN 7.3 g/dL (13.0-17.5); LYMPH # 0.6 x10^3/uL (1.0-4.8); LYMPH % 8 % (24-48); MEAN CORPUSCULAR HEMOGLOBIN 30 pg (25-35); MEAN CORPUSCULAR HGB CONC 34 g/dL (31-37); MEAN CORPUSCULAR VOLUME 90 fL (79-100); MONO # 0.4 x10^3/uL (0.0-1.1); MONO % 5 % (0-9); NEUT # 6.8 x10^3uL (1.8-7.7); NEUT % 86 % (31-73); PLATELET COUNT 123 x10^3/uL (140-400); RED BLOOD COUNT 2.39 x10^6/uL (4.30-5.70); RED CELL DISTRIBUTION WIDTH 15.1 % (11.5-14.5); WHITE BLOOD COUNT 7.8 x10^3/uL (4.0-11.0)
[2017-02-16] MEDS: INSULIN ASPART 300 UNITS/3 ML INSULN.PEN SQ ×4 (06:00→17:27)
[2017-02-16 06:30] LABS: ALBUMIN 2.1 g/dL (3.4-5.0); ALBUMIN/GLOBULIN RATIO 0.6 (1.0-1.7); ALK PHOS 205 U/L (46-116); ALT (SGPT) 25 U/L (16-63); ANION GAP 13 (6-14); AST (SGOT) 50 U/L (15-37); BLOOD UREA NITROGEN 35 mg/dL (8-26); BUN/CREATININE RATIO 15 (6-20); CALCIUM 8.7 mg/dL (8.5-10.1); CARBON DIOXIDE 20 mmol/L (21-32); CHLORIDE 117 mmol/L (98-107); CREATININE 2.3 mg/dL (0.7-1.3); GFR 27.4; GLUCOSE 175 mg/dL (70-99); POTASSIUM 4.2 mmol/L (3.5-5.1); SODIUM 150 mmol/L (136-145); TOTAL BILIRUBIN 1.1 mg/dL (0.2-1.0); TOTAL PROTEIN 5.5 g/dL (6.4-8.2)
[2017-02-16 07:00] LABS: LACTIC ACID 1.5 mmol/L (0.4-2.0)
[2017-02-16] MEDS: IPRATRPIUM/ALBUTEROL 0.5/2.5MG 3 ML NEBU. NEB ×4 (07:49→19:26)
[2017-02-16 07:54] LABS: TROPONINI 5.889 ng/mL (0.000-0.055)
[2017-02-16 08:08] LABS: BASE EXCESS ABG -6 mmol/L (-3-3); HCO3 ABG 17 mmol/L (21-28); PCO2 ABG 23 mmHg (35-46); PH ABG 7.47 (7.35-7.45); PO2 ABG 140 mmHg (65-108); SAT O2 ABG 98 % (92-99)
[2017-02-16 08:09] LABS: FIO2 ABG 40
[2017-02-16] MEDS: FAMOTIDINE 20 MG/2 ML VIAL IVP (08:15)
[2017-02-16] MEDS: ENOXAPARIN 30 MG/0.3 ML SYRINGE. SQ (09:15)
[2017-02-16 11:27] LABS: POC GLUCOSE 200 mg/dL (70-99)
[2017-02-16 11:44] LABS: BASE EXCESS ABG -8 mmol/L (-3-3); HCO3 ABG 15 mmol/L (21-28); PCO2 ABG 22 mmHg (35-46); PH ABG 7.46 (7.35-7.45); PO2 ABG 136 mmHg (65-108); SAT O2 ABG 98 % (92-99)
[2017-02-16 11:45] LABS: FIO2 ABG 40
[2017-02-16 14:56] LABS: TROPONINI 3.647 ng/mL (0.000-0.055)
[2017-02-16] MEDS: MICAFUNGIN 100 MG in IV NORMAL SALINE 100ML 100 ML IV (16:59)
[2017-02-16] MEDS: ASPIRIN 300 MG SUPP.RECT PR (17:25)
[2017-02-16 17:38] LABS: POC GLUCOSE 144 mg/dL (70-99)
[2017-02-16] MEDS: MINERAL OIL/PETROLATUM,WHITE OPHTH OINT 3.5GM TUBE. OU (22:21)
[2017-02-16 22:30] LABS: POC GLUCOSE 180 mg/dL (70-99)
[2017-02-17] MEDS: METOPROLOL TARTRATE 5 MG/5 ML VIAL. IVP ×4 (00:01→17:51)
[2017-02-17 00:15] LABS: POC GLUCOSE 149 mg/dL (70-99)
[2017-02-17] MEDS: INSULIN ASPART 300 UNITS/3 ML INSULN.PEN SQ ×4 (06:00→17:51)
[2017-02-17] MEDS: PIPERACILLIN/TAZO IV Push 3.375 GM VIAL. IVP ×4 (06:21→17:51)
[2017-02-17 06:26] LABS: ADD MAN DIFF? NO
[2017-02-17 06:32] LABS: BASO # 0.1 x10^3/uL (0.0-0.2); BASO % 1 % (0-3); EOS # 0.1 x10^3/uL (0.0-0.7); EOS % 0 % (0-3); HEMATOCRIT 23.2 % (39.0-53.0); HEMOGLOBIN 7.3 g/dL (13.0-17.5); LYMPH # 0.6 x10^3/uL (1.0-4.8); LYMPH % 5 % (24-48); MEAN CORPUSCULAR HEMOGLOBIN 29 pg (25-35); MEAN CORPUSCULAR HGB CONC 32 g/dL (31-37); MEAN CORPUSCULAR VOLUME 92 fL (79-100); MONO # 0.6 x10^3/uL (0.0-1.1); MONO % 5 % (0-9); NEUT # 10.5 x10^3uL (1.8-7.7); NEUT % 89 % (31-73); PLATELET COUNT 152 x10^3/uL (140-400); RED BLOOD COUNT 2.53 x10^6/uL (4.30-5.70); RED CELL DISTRIBUTION WIDTH 15.1 % (11.5-14.5); WHITE BLOOD COUNT 11.9 x10^3/uL (4.0-11.0)
[2017-02-17 06:32] LABS: POC GLUCOSE 107 mg/dL (70-99)
[2017-02-17 07:10] LABS: ALBUMIN/GLOBULIN RATIO 0.5 (1.0-1.7); ALK PHOS 304 U/L (46-116); ALT (SGPT) 27 U/L (16-63); ANION GAP 14 (6-14); AST (SGOT) 52 U/L (15-37); BLOOD UREA NITROGEN 54 mg/dL (8-26); BUN/CREATININE RATIO 15 (6-20); CALCIUM 8.8 mg/dL (8.5-10.1); CARBON DIOXIDE 20 mmol/L (21-32); CHLORIDE 115 mmol/L (98-107); CREATININE 3.5 mg/dL (0.7-1.3); GFR 16.9; GLUCOSE 122 mg/dL (70-99); POTASSIUM 4.2 mmol/L (3.5-5.1); SODIUM 149 mmol/L (136-145); TOTAL BILIRUBIN 0.7 mg/dL (0.2-1.0)
[2017-02-17] MEDS: IPRATRPIUM/ALBUTEROL 0.5/2.5MG 3 ML NEBU. NEB ×4 (07:36→19:59)
[2017-02-17 07:48] LABS: BASE EXCESS ABG -5 mmol/L (-3-3); HCO3 ABG 18 mmol/L (21-28); PCO2 ABG 26 mmHg (35-46); PH ABG 7.45 (7.35-7.45); PO2 ABG 133 mmHg (65-108); SAT O2 ABG 98 % (92-99)
[2017-02-17 07:51] LABS: FIO2 ABG 40
[2017-02-17] MEDS ORDERED: ONDANSETRON PF 4 MG/2 ML VIAL. IV (08:30)
[2017-02-17] MEDS: FAMOTIDINE 20 MG/2 ML VIAL IVP (09:52)
[2017-02-17] MEDS: ASPIRIN 300 MG SUPP.RECT PR (09:52)
[2017-02-17] MEDS: ENOXAPARIN 30 MG/0.3 ML SYRINGE. SQ (09:52)
[2017-02-17] MEDS: SODIUM BICARBONATE VIAL 50 MEQ in IV 1/2 NORMAL SALINE 1,000 ML IV ×2 (09:53→17:27)
[2017-02-17 10:55] LABS: VITAMIN-B12 1781 pg/mL (247-911)
[2017-02-17 12:10] LABS: POC GLUCOSE 113 mg/dL (70-99)
[2017-02-17] MEDS ORDERED: levETIRAcetam 500 MG in IV DEXTROSE 5% 100 ML IV (15:00)
[2017-02-17] MEDS: MICAFUNGIN 100 MG in IV NORMAL SALINE 100ML 100 ML IV (17:51)
[2017-02-17 17:56] LABS: POC GLUCOSE 97 mg/dL (70-99)
[2017-02-17 21:43] LABS: POC GLUCOSE 120 mg/dL (70-99)
[2017-02-17] MEDS: INSULIN DETEMIR 300 UNITS/3 ML INSULN.PEN. SQ (21:44)
[2017-02-18] MEDS: PIPERACILLIN/TAZO IV Push 3.375 GM VIAL. IVP ×3 (00:54→12:19)
[2017-02-18] MEDS: SODIUM BICARBONATE VIAL 50 MEQ in IV 1/2 NORMAL SALINE 1,000 ML IV ×5 (00:55→22:56)
[2017-02-18] MEDS: METOPROLOL TARTRATE 5 MG/5 ML VIAL. IVP ×4 (00:56→16:06)
[2017-02-18 05:47] LABS: ADD MAN DIFF? NO
[2017-02-18] MEDS: INSULIN ASPART 300 UNITS/3 ML INSULN.PEN SQ ×4 (05:50→17:22)
[2017-02-18 05:51] LABS: BASO # 0.1 x10^3/uL (0.0-0.2); BASO % 1 % (0-3); EOS # 0.1 x10^3/uL (0.0-0.7); EOS % 2 % (0-3); LYMPH # 0.5 x10^3/uL (1.0-4.8); LYMPH % 6 % (24-48); MEAN CORPUSCULAR HEMOGLOBIN 30 pg (25-35); MEAN CORPUSCULAR HGB CONC 33 g/dL (31-37); MEAN CORPUSCULAR VOLUME 90 fL (79-100); MONO # 0.4 x10^3/uL (0.0-1.1); MONO % 5 % (0-9); NEUT # 6.8 x10^3uL (1.8-7.7); NEUT % 87 % (31-73); PLATELET COUNT 139 x10^3/uL (140-400); RED BLOOD COUNT 2.36 x10^6/uL (4.30-5.70); RED CELL DISTRIBUTION WIDTH 15.6 % (11.5-14.5); WHITE BLOOD COUNT 7.9 x10^3/uL (4.0-11.0)
[2017-02-18 05:55] LABS: POC GLUCOSE 90 mg/dL (70-99)
[2017-02-18 06:07] LABS: HEMATOCRIT 21.2 % (39.0-53.0); HEMOGLOBIN 6.9 g/dL (13.0-17.5)
[2017-02-18 06:26] LABS: ANION GAP 13 (6-14); BLOOD UREA NITROGEN 64 mg/dL (8-26); CALCIUM 8.8 mg/dL (8.5-10.1); CARBON DIOXIDE 22 mmol/L (21-32); CHLORIDE 115 mmol/L (98-107); CREATININE 3.9 mg/dL (0.7-1.3); GFR 14.9; GLUCOSE 108 mg/dL (70-99); SODIUM 150 mmol/L (136-145)
[2017-02-18] MEDS: IPRATRPIUM/ALBUTEROL 0.5/2.5MG 3 ML NEBU. NEB ×4 (07:12→19:31)
[2017-02-18 08:13] LABS: BASE EXCESS ABG -6 mmol/L (-3-3); HCO3 ABG 18 mmol/L (21-28); PCO2 ABG 29 mmHg (35-46); PH ABG 7.42 (7.35-7.45); PO2 ABG 160 mmHg (65-108); SAT O2 ABG 99 % (92-99)
[2017-02-18] MEDS: FAMOTIDINE 20 MG/2 ML VIAL IVP (08:17)
[2017-02-18] MEDS: ASPIRIN 300 MG SUPP.RECT PR (08:17)
[2017-02-18] MEDS: ENOXAPARIN 30 MG/0.3 ML SYRINGE. SQ (08:17)
[2017-02-18 08:26] LABS: FIO2 ABG 40
[2017-02-18 10:33] LABS: IMMEDIATE SPIN CROSSMATCH 1 1
[2017-02-18 12:29] LABS: POC GLUCOSE 92 mg/dL (70-99)
[2017-02-18] MEDS: MICAFUNGIN 100 MG in IV NORMAL SALINE 100ML 100 ML IV (17:22)
[2017-02-18 17:25] LABS: POC GLUCOSE 78 mg/dL (70-99)
[2017-02-18] MEDS: PIPERACILLIN/TAZO IV Push 2.25 GM VIAL. IVP (18:09)
[2017-02-18] MEDS: hydrALAZINE 20 MG/ML VIAL. IVP (18:09)
[2017-02-18] MEDS: INSULIN DETEMIR 300 UNITS/3 ML INSULN.PEN. SQ (21:00)
[2017-02-18 22:06] LABS: POC GLUCOSE 92 mg/dL (70-99)
[2017-02-19 00:43] LABS: POC GLUCOSE 83 mg/dL (70-99)
[2017-02-19] MEDS: METOPROLOL TARTRATE 5 MG/5 ML VIAL. IVP ×4 (00:45→17:42)
[2017-02-19] MEDS: PIPERACILLIN/TAZO IV Push 2.25 GM VIAL. IVP ×4 (00:46→17:41)
[2017-02-19] MEDS: INSULIN ASPART 300 UNITS/3 ML INSULN.PEN SQ ×4 (05:39→17:43)
[2017-02-19 05:41] LABS: POC GLUCOSE 111 mg/dL (70-99)
[2017-02-19 05:50] LABS: ADD MAN DIFF? NO
[2017-02-19] MEDS: SODIUM BICARBONATE VIAL 50 MEQ in IV 1/2 NORMAL SALINE 1,000 ML IV ×3 (05:55→21:33)
[2017-02-19 06:16] LABS: BASO # 0.1 x10^3/uL (0.0-0.2); BASO % 1 % (0-3); EOS # 0.2 x10^3/uL (0.0-0.7); EOS % 2 % (0-3); HEMATOCRIT 25.3 % (39.0-53.0); HEMOGLOBIN 8.2 g/dL (13.0-17.5); LYMPH # 0.4 x10^3/uL (1.0-4.8); LYMPH % 4 % (24-48); MEAN CORPUSCULAR HEMOGLOBIN 29 pg (25-35); MEAN CORPUSCULAR HGB CONC 33 g/dL (31-37); MEAN CORPUSCULAR VOLUME 90 fL (79-100); MONO # 0.4 x10^3/uL (0.0-1.1); MONO % 4 % (0-9); NEUT # 7.9 x10^3uL (1.8-7.7); NEUT % 89 % (31-73); PLATELET COUNT 136 x10^3/uL (140-400); WHITE BLOOD COUNT 8.9 x10^3/uL (4.0-11.0)
[2017-02-19 06:54] LABS: ANION GAP 14 (6-14); BLOOD UREA NITROGEN 66 mg/dL (8-26); CALCIUM 8.6 mg/dL (8.5-10.1); CARBON DIOXIDE 23 mmol/L (21-32); CHLORIDE 113 mmol/L (98-107); CREATININE 3.8 mg/dL (0.7-1.3); GFR 15.3; GLUCOSE 111 mg/dL (70-99); SODIUM 150 mmol/L (136-145)
[2017-02-19] MEDS: IPRATRPIUM/ALBUTEROL 0.5/2.5MG 3 ML NEBU. NEB ×4 (07:04→20:05)
[2017-02-19 08:12] LABS: BASE EXCESS ABG -2 mmol/L (-3-3); HCO3 ABG 21 mmol/L (21-28); PCO2 ABG 29 mmHg (35-46); PH ABG 7.48 (7.35-7.45); PO2 ABG 176 mmHg (65-108); SAT O2 ABG 99 % (92-99)
[2017-02-19 08:15] LABS: FIO2 ABG 40
[2017-02-19] MEDS: ASPIRIN 300 MG SUPP.RECT PR (08:58)
[2017-02-19] MEDS: FAMOTIDINE 20 MG/2 ML VIAL IVP (08:58)
[2017-02-19] MEDS: ENOXAPARIN 30 MG/0.3 ML SYRINGE. SQ (08:58)
[2017-02-19 12:42] LABS: POC GLUCOSE 127 mg/dL (70-99)
[2017-02-19 17:39] LABS: POC GLUCOSE 125 mg/dL (70-99)
[2017-02-19] MEDS: MICAFUNGIN 100 MG in IV NORMAL SALINE 100ML 100 ML IV (17:43)
[2017-02-19] MEDS: INSULIN DETEMIR 300 UNITS/3 ML INSULN.PEN. SQ (21:00)
[2017-02-19 21:05] LABS: POC GLUCOSE 128 mg/dL (70-99)
[2017-02-19] MEDS: hydrALAZINE 20 MG/ML VIAL. IVP (21:34)
[2017-02-19 23:50] LABS: POC GLUCOSE 135 mg/dL (70-99)
[2017-02-20] MEDS: PIPERACILLIN/TAZO IV Push 2.25 GM VIAL. IVP ×4 (00:33→18:21)
[2017-02-20] MEDS: METOPROLOL TARTRATE 5 MG/5 ML VIAL. IVP ×4 (00:34→18:21)
[2017-02-20] MEDS: SODIUM BICARBONATE VIAL 50 MEQ in IV 1/2 NORMAL SALINE 1,000 ML IV ×3 (04:54→19:56)
[2017-02-20 05:25] LABS: ADD MAN DIFF? NO
[2017-02-20 05:26] LABS: POC GLUCOSE 156 mg/dL (70-99)
[2017-02-20] MEDS: INSULIN ASPART 300 UNITS/3 ML INSULN.PEN SQ ×4 (05:26→18:00)
[2017-02-20 05:28] LABS: BASO # 0.1 x10^3/uL (0.0-0.2); BASO % 1 % (0-3); EOS # 0.2 x10^3/uL (0.0-0.7); EOS % 3 % (0-3); HEMATOCRIT 23.7 % (39.0-53.0); HEMOGLOBIN 7.9 g/dL (13.0-17.5); LYMPH # 0.5 x10^3/uL (1.0-4.8); LYMPH % 6 % (24-48); MEAN CORPUSCULAR HEMOGLOBIN 30 pg (25-35); MEAN CORPUSCULAR HGB CONC 34 g/dL (31-37); MEAN CORPUSCULAR VOLUME 90 fL (79-100); MONO # 0.4 x10^3/uL (0.0-1.1); MONO % 5 % (0-9); NEUT # 6.2 x10^3uL (1.8-7.7); NEUT % 84 % (31-73); PLATELET COUNT 127 x10^3/uL (140-400); RED BLOOD COUNT 2.62 x10^6/uL (4.30-5.70); RED CELL DISTRIBUTION WIDTH 15.1 % (11.5-14.5); WHITE BLOOD COUNT 7.4 x10^3/uL (4.0-11.0)
[2017-02-20 07:06] LABS: ANION GAP 10 (6-14); BLOOD UREA NITROGEN 69 mg/dL (8-26); CARBON DIOXIDE 24 mmol/L (21-32); CHLORIDE 112 mmol/L (98-107); CREATININE 3.8 mg/dL (0.7-1.3); GFR 15.3; GLUCOSE 173 mg/dL (70-99); POTASSIUM 3.8 mmol/L (3.5-5.1); SODIUM 146 mmol/L (136-145)
[2017-02-20] MEDS: IPRATRPIUM/ALBUTEROL 0.5/2.5MG 3 ML NEBU. NEB ×4 (08:02→20:08)
[2017-02-20] MEDS: ENOXAPARIN 30 MG/0.3 ML SYRINGE. SQ (08:58)
[2017-02-20] MEDS: ASPIRIN 300 MG SUPP.RECT PR (08:59)
[2017-02-20] MEDS: FAMOTIDINE 20 MG/2 ML VIAL IVP (08:59)
[2017-02-20 09:26] LABS: BASE EXCESS ABG -2 mmol/L (-3-3); HCO3 ABG 21 mmol/L (21-28); PCO2 ABG 28 mmHg (35-46); PH ABG 7.49 (7.35-7.45); PO2 ABG 161 mmHg (65-108); SAT O2 ABG 99 % (92-99)
[2017-02-20 09:27] LABS: FIO2 ABG 40
[2017-02-20 09:29] LABS: POC GLUCOSE 52 mg/dL (70-99)
[2017-02-20] MEDS: DEXTROSE 50% 25 GM / 50ML DISP.SYRIN. IV (09:32)
[2017-02-20 09:47] LABS: POC GLUCOSE 230 mg/dL (70-99)
[2017-02-20 12:25] LABS: POC GLUCOSE 193 mg/dL (70-99)
[2017-02-20] MEDS: MICAFUNGIN 100 MG in IV NORMAL SALINE 100ML 100 ML IV (18:21)
[2017-02-20 18:33] LABS: POC GLUCOSE 180 mg/dL (70-99)
[2017-02-20] MEDS: INSULIN DETEMIR 300 UNITS/3 ML INSULN.PEN. SQ (21:30)
[2017-02-20 21:38] LABS: POC GLUCOSE 159 mg/dL (70-99)
[2017-02-21] MEDS: METOPROLOL TARTRATE 5 MG/5 ML VIAL. IVP ×4 (00:02→18:16)
[2017-02-21] MEDS: PIPERACILLIN/TAZO IV Push 2.25 GM VIAL. IVP ×4 (00:02→18:17)
[2017-02-21 00:16] LABS: POC GLUCOSE 128 mg/dL (70-99)
[2017-02-21] MEDS: SODIUM BICARBONATE VIAL 50 MEQ in IV 1/2 NORMAL SALINE 1,000 ML IV ×2 (03:22→18:16)
[2017-02-21] MEDS: INSULIN ASPART 300 UNITS/3 ML INSULN.PEN SQ ×4 (06:00→18:00)
[2017-02-21 06:10] LABS: POC GLUCOSE 83 mg/dL (70-99)
[2017-02-21] MEDS: FAMOTIDINE 20 MG/2 ML VIAL IVP (08:13)
[2017-02-21] MEDS: ENOXAPARIN 30 MG/0.3 ML SYRINGE. SQ (08:14)
[2017-02-21] MEDS: ASPIRIN 300 MG SUPP.RECT PR (08:14)
[2017-02-21] MEDS: IPRATRPIUM/ALBUTEROL 0.5/2.5MG 3 ML NEBU. NEB ×4 (08:16→19:51)
[2017-02-21 08:33] LABS: BASE EXCESS ABG -1 mmol/L (-3-3); HCO3 ABG 22 mmol/L (21-28); PCO2 ABG 30 mmHg (35-46); PH ABG 7.48 (7.35-7.45); PO2 ABG 136 mmHg (65-108); SAT O2 ABG 99 % (92-99)
[2017-02-21 08:35] LABS: FIO2 ABG 40
[2017-02-21 12:40] LABS: POC GLUCOSE 72 mg/dL (70-99)
[2017-02-21] MEDS ORDERED: GLYCOPYRROLATE 1 MG/5 ML VIAL. IV (13:30)
[2017-02-21] MEDS: MICAFUNGIN 100 MG in IV NORMAL SALINE 100ML 100 ML IV (18:17)
[2017-02-21] MEDS: DEXTROSE 50% 25 GM / 50ML DISP.SYRIN. IV (18:20)
[2017-02-21 18:53] LABS: POC GLUCOSE 56 mg/dL (70-99)
[2017-02-21] MEDS: INSULIN DETEMIR 300 UNITS/3 ML INSULN.PEN. SQ (20:39)
[2017-02-21 20:44] LABS: POC GLUCOSE 85 mg/dL (70-99)
[2017-02-22] MEDS: PIPERACILLIN/TAZO IV Push 2.25 GM VIAL. IVP ×2 (00:02→05:38)
[2017-02-22] MEDS: METOPROLOL TARTRATE 5 MG/5 ML VIAL. IVP ×3 (00:02→11:46)
[2017-02-22 00:20] LABS: POC GLUCOSE 84 mg/dL (70-99)
[2017-02-22] MEDS: SODIUM BICARBONATE VIAL 50 MEQ in IV 1/2 NORMAL SALINE 1,000 ML IV ×3 (01:01→08:34)
[2017-02-22] MEDS: INSULIN ASPART 300 UNITS/3 ML INSULN.PEN SQ ×2 (05:43)
[2017-02-22 05:44] LABS: ANION GAP 11 (6-14); BLOOD UREA NITROGEN 66 mg/dL (8-26); CALCIUM 8.3 mg/dL (8.5-10.1); CARBON DIOXIDE 25 mmol/L (21-32); CHLORIDE 108 mmol/L (98-107); CREATININE 3.6 mg/dL (0.7-1.3); GFR 16.3; GLUCOSE 57 mg/dL (70-99); POTASSIUM 3.3 mmol/L (3.5-5.1); SODIUM 144 mmol/L (136-145)
[2017-02-22] MEDS: DEXTROSE 50% 25 GM / 50ML DISP.SYRIN. IV (05:45)
[2017-02-22 06:04] LABS: POC GLUCOSE 105 mg/dL (70-99)
[2017-02-22 06:04] LABS: POC GLUCOSE 53 mg/dL (70-99)
[2017-02-22] MEDS: FAMOTIDINE 20 MG/2 ML VIAL IVP (08:34)
[2017-02-22] MEDS: ASPIRIN 300 MG SUPP.RECT PR (08:34)
[2017-02-22] MEDS: ENOXAPARIN 30 MG/0.3 ML SYRINGE. SQ (08:35)
[2017-02-22] MEDS: IPRATRPIUM/ALBUTEROL 0.5/2.5MG 3 ML NEBU. NEB ×2 (08:44→11:12)
[2017-02-22] MEDS: MORPHINE SULFATE 4 MG/ML DISP.SYRIN. IV ×3 (11:30→13:39)
[2017-02-22] MEDS: MORPHINE SULFATE 2 MG/ML DISP.SYRIN. IV (14:55)
[2017-02-23] MEDS: MORPHINE SULFATE 4 MG/ML DISP.SYRIN. IV ×4 (05:42→16:59)
[2017-02-24] MEDS: MORPHINE SULFATE 2 MG/ML DISP.SYRIN. IV ×3 (07:52→19:58)
[2017-02-24] MEDS ORDERED: MORPHINE SULFATE 20 MG/ML CONC SOLUTION. SL (09:00)
[2017-02-24] MEDS ORDERED: LORazepam INTENSOL 2 MG/ML ORAL.CONC SL (09:00)
[2017-02-25] MEDS: MORPHINE SULFATE 2 MG/ML DISP.SYRIN. IV (07:53)
== END 2017-02-25 10:38 | disposition hospice, inpatient (51) | DRG 853 ==
LOC: 6 SOUTH 02-14 18:07 → 1 WEST ICU 02-15 12:16 → 5 NORTH 02-22 19:30
PROVIDERS: Internal Medicine
PROC: 0DBK0ZZ Excision of Ascending Colon, Open Approach (ICD-10-PCS; 2017-02-08 18:45)
PROC: 0D1B0Z4 Bypass Ileum to Cutaneous, Open Approach (ICD-10-PCS; 2017-02-08 18:45)
PROC: 0BH17EZ Insertion of Endotracheal Airway into Trachea, Via Natural or Artificial Opening (ICD-10-PCS; 2017-02-08 18:45)
PROC: 30233N1 Transfusion of Nonautologous Red Blood Cells into Peripheral Vein, Percutaneous Approach (ICD-10-PCS; 2017-02-08 18:45)
PROC: 0DBB0ZZ Excision of Ileum, Open Approach (ICD-10-PCS; 2017-02-08 18:45)
PROC: 5A1945Z Respiratory Ventilation, 24-96 Consecutive Hours (ICD-10-PCS; 2017-02-08 18:45)
PROC: 02HV33Z Insertion of Infusion Device into Superior Vena Cava, Percutaneous Approach (ICD-10-PCS; principal; 2017-02-08 19:25)
PROC: 5A1955Z Respiratory Ventilation, Greater than 96 Consecutive Hours (ICD-10-PCS; 2017-02-08 19:25)
PROC: 0BH17EZ Insertion of Endotracheal Airway into Trachea, Via Natural or Artificial Opening (ICD-10-PCS; 2017-02-08 19:25)
DX: A41.01 Sepsis due to Methicillin susceptible Staphylococcus aureus (principal); J18.9 Pneumonia, unspecified organism; R65.21 Severe sepsis with septic shock; J96.01 Acute respiratory failure with hypoxia; J15.8 Pneumonia due to other specified bacteria; J81.1 Chronic pulmonary edema; G93.1 Anoxic brain damage, not elsewhere classified; E46 Unspecified protein-calorie malnutrition; G93.41 Metabolic encephalopathy; I46.9 Cardiac arrest, cause unspecified; N17.9 Acute kidney failure, unspecified; J47.0 Bronchiectasis with acute lower respiratory infection; E87.0 Hyperosmolality and hypernatremia; D62 Acute posthemorrhagic anemia; K56.7 Ileus, unspecified; K91.89 Other postprocedural complications and disorders of digestive system; L02.211 Cutaneous abscess of abdominal wall; K66.8 Other specified disorders of peritoneum; E11.22 Type 2 diabetes mellitus with diabetic chronic kidney disease; E11.65 Type 2 diabetes mellitus with hyperglycemia; E77.8 Other disorders of glycoprotein metabolism; D63.1 Anemia in chronic kidney disease; E86.0 Dehydration; E87.6 Hypokalemia; I12.9 Hypertensive chronic kidney disease with stage 1 through stage 4 chronic kidney disease, or unspecified chronic kidney disease; K57.30 Diverticulosis of large intestine without perforation or abscess without bleeding; K66.0 Peritoneal adhesions (postprocedural) (postinfection); K76.9 Liver disease, unspecified; K81.9 Cholecystitis, unspecified; N18.3 Chronic kidney disease, stage 3 (moderate); R13.10 Dysphagia, unspecified; R29.6 Repeated falls; R56.9 Unspecified convulsions; Y95 Nosocomial condition; Z51.5 Encounter for palliative care; Z66 Do not resuscitate; Z79.84 Long term (current) use of oral hypoglycemic drugs; Z90.49 Acquired absence of other specified parts of digestive tract; Z87.891 Personal history of nicotine dependence; Z82.49 Family history of ischemic heart disease and other diseases of the circulatory system; Z80.3 Family history of malignant neoplasm of breast; Z68.27 Body mass index [BMI] 27.0-27.9, adult; Z88.8 Allergy status to other drugs, medicaments and biological substances
CPT/HCPCS: 36415; 36569; 36600; 49406; 70450; 70551; 71010; 71045; 74000; 74018; 74176; 76705; 80048; 80053; 80202; 82565; 82607; 82805; 82962; 83605; 83735; 84100; 84443; 84478; 84484; 85007; 85014; 85018; 85025; 85027; 85610; 86850; 86900; 86901; 86920; 87040; 87071; 87075; 87186; 87205; 87641; 88307; 92610-GN; 93005; 93306; 93970; 94002; 94003; 94640; 94760; 95816; 97162-GP; 97164-GP; 97166-GO; 97168-GO; 97530-GO; 97530-GP; 97535-GO; 99152; 99153; A4215; C1729; C1892; J0330; J0360; J0610; J1100; J1650; J1815; J1953; J2060; J2248; J2250; J2270; J2370; J2405; J2543; J2704; J3010; J3370; J3475; J3480; J3490; J7030; J7042; J7620; P9016; P9045; P9046; Q9966; S0028